=== PATIENT | male | born 1980 | race Caucasian/White ===

== ENCOUNTER 2021-01-29 14:23 | Emergency (ER) | payer MEDICARE ==
[2021-01-29 15:15] LABS: HEMOGLOBIN 14.6 gm/dl (14.0-17.5); RED BLOOD COUNT 5.07 M/UL (4.20-5.50); WHITE BLOOD COUNT 11.1 K/UL (4.5-11.0)
[2021-01-29 15:47] LABS: BUN/CREATININE RATIO 21 (0-10)
== END 2021-01-29 17:42 | disposition home or self-care (01) ==
LOC: ER1 14:23
PROVIDERS: Physician Assistant
DX: R10.12 Left upper quadrant pain (principal); I10 Essential (primary) hypertension; Z88.5 Allergy status to narcotic agent; F17.210 Nicotine dependence, cigarettes, uncomplicated
CPT/HCPCS: 80053; 81001; 82150; 83605; 83690; 85025; 96374; 99284; J1885; J7030